=== PATIENT | male | born 1965 | race Caucasian/White ===

== ENCOUNTER 2022-01-31 12:43 | Day surgery (SDC) | payer BC, OTHER ==
[~2022-01-31 12:43] MED LIST: Lactated Ringers 1,000 ML IV SCH; Propofol 200 MG/20 ML SDV ONE; fentaNYL 100 MCG/2 ML SDV ONE
[2022-01-31] MEDS ORDERED: Midazolam 1 MG/ML 2 ML SDV ONE (14:21)
[2022-01-31] MEDS ORDERED: Propofol 200 MG/20 ML SDV ONE (14:33)
[2022-01-31 16:52] VITALS: BP 112/62; PULSE 65
== END 2022-01-31 16:45 | disposition home or self-care (01) ==
LOC: MW.SDS 12:43
PROVIDERS: ATTEND Surgery
DX: Z12.11 Encounter for screening for malignant neoplasm of colon (principal); K57.30 Diverticulosis of large intestine without perforation or abscess without bleeding; D12.6 Benign neoplasm of colon, unspecified; I10 Essential (primary) hypertension; E55.9 Vitamin D deficiency, unspecified; E78.00 Pure hypercholesterolemia, unspecified; E66.9 Obesity, unspecified; Z68.33 Body mass index [BMI] 33.0-33.9, adult; Z90.49 Acquired absence of other specified parts of digestive tract; Z79.84 Long term (current) use of oral hypoglycemic drugs; Z79.899 Other long term (current) drug therapy; Z80.0 Family history of malignant neoplasm of digestive organs
CPT/HCPCS: 45380; 82947; J2704; J3010; J7120; 00812; J2250